=== PATIENT | male | born 1940 | race Caucasian/White ===

== ENCOUNTER 2021-04-21 06:51 | Day surgery (SDC) | payer OTHER ==
[~2021-04-21] VITALS: Ht 188 cm; Wt 107.5 kg
--- NOTE | ~2021-04-21 | O ---
[facility] [place] [address] OPERATIVE REPORT Name: CAROL ANN TODD [facility] Room #: 150-6 [facility] M..#: [id number] Admission: 04/21/21 Attend Phys: Jim Loomis MD Discharge: Date of : 36 Report #: [id number] THIS REPORT FOR: cc: Tj Michel,Jim Pate MD ~ DOC #: [id number] cc: Kevin Peoples MD, DO Jim Beach MD DATE OF SERVICE: 04/21/2021 PREOPERATIVE DIAGNOSES: 1. 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 2. Left lower lid ectropion with keratitis. POSTOPERATIVE DIAGNOSES: 1. 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 2. Left lower lid ectropion with keratitis. PROCEDURE: 1. Excision of basal cell carcinoma of left lower lid with myocutaneous flap repair of defect. 2. Correction of left lower lid ectropion by myocutaneous flap. SURGEON: Jim Loomis MD LAND APPRAISER: None. ANESTHESIA: MAC. COMPLICATIONS: None. INDICATIONS FOR SURGERY: This pleasant 81-year-old gentleman has a basal cell carcinoma in his left lower lid and cheek that has been biopsy proven with significant residual tumor present. He presents today primarily for excision of this tumor with frozen sections and subsequent reconstruction of that defect. 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 A left lower lid ectropion repair by myocutaneous advancement flap is also planned. Informed consent was obtained to include but not limited to the potential risk for loss of vision, bleeding, infection, failure to improve the problem, and the potential need for further surgery or treatment. DESCRIPTION OF PROCEDURE: The patient was taken to the operating room where 2% Xylocaine with epinephrine mixed with equal parts of 0.75% Marcaine with [place] [address] [address] OPERATIVE REPORT Name: CAROL ANN TODD [facility] Room #: 150-6 [facility]..#: [id number] Admission: 04/21/21 Attend Phys: Jim Loomis MD Discharge: Date of : 36 Report #: [id number] was administered transcutaneously to the left lower lid, the left cheek, the left medial canthus, the left lateral canthus and the left infratemporal fossa. The patient was subsequently prepped and draped in the usual sterile fashion. A fine tip skin marking pen was utilized to outline the lesion including approximately 2-3 mm of normal appearing tissue around its margins. The incisions were then made perpendicularly down to the premalar space where the excision was truncated. The lesion was then removed en-bloc and placed on a drawing for the waiting pathologist. She snap froze that tissue and found that our margins were clear. The basal cell carcinoma having then extirpated, the defect in the left lower lid was then corrected with a myocutaneous flap that was developed laterally. The area laterally out into the infratemporal fossa was then undermined and advanced after hemostasis was re-achieved. The deep closure was accomplished with interrupted buried 5-0 Vicryl sutures. The skin was then closed with interrupted 6-0 plain gut sutures. Attention was then paid to correction of the left lower lid ectropion. A section of the lateral portion of the lid margin was removed and hemostasis was re-achieved. A myocutaneous flap was then developed medially to be rotated laterally to resuspend the left lower lid. Hemostasis was then re-achieved. That flap was then resuspended by reattaching the tarsal plate to the lateral orbital rim with interrupted 5-0 Vicryl sutures. The eyelid margin was reapproximated with interrupted 7-0 Vicryl sutures. The subcutaneous structures and the skin was then closed with interrupted 6-0 plain gut sutures. The wounds were then cleaned and dressed with erythromycin ophthalmic ointment. The patient was subsequently transported to the recovery area having tolerated the procedures well with no anesthetic or operative complications being noted. MD SAM Thompson/GÓMEZ By: [id number] Jim Loomis MD /carin
[~2021-04-21 06:51] MED LIST: AIRBORNE ELDER PO; AMLODIPINE BESY10 MG PO; BENICAR HCT 401 EACH PO; EX-LAX15 MG PO; FLUTICASONE PRO16 GM NASAL; GLUCOPHAGE500 MG PO; HYDROCHLOROTH12.5 M1 PO; OLMESARTAN MEDO40 MG PO; TUMS200 MG PO; XANAX 0.5 MG0.5 MG PO
[2021-04-21 08:00] VITALS: BP 119/59
--- NOTE | 2021-04-22 14:07 | PATH ---
[address] [address] PATHOLOGY RPT PROCEDURE Name: CAROL ANN TODD GENE Room #: DEP [facility]..#: [id number] Admission: 04/21/21 Date of : 36 Discharge: 04/21/21 Report #: [id number] Path Case #: [id number] [facility] Accession Number: [id number] . 01 Material submitted: . lid - LEFT LOWER LID BASAL CELL CARCINOMA FS. Modifiers: left, lower . 01 Clinical history: . EXCISION BASAL CELL CARCINOMA/FLAP RECON BCCA . 02 Frozen section diagnosis: . FROZEN SECTION DIAGNOSIS (Dr. Elizabeth Bustos) . FSE1, Skin, left lower lid excision: - Margins free of invasive carcinoma on FS slides. . These findings are discussed with Dr. Jim Loomis in OR6 and a written report is placed in the patient's chart. . Frozen section performed at [facility], [address], [place] [address]. . . FROZEN SECTION GROSS DESCRIPTION Specimen E is received fresh from the OR labeled with the patient's name, and "left lower lid basal cell carcinoma", consists of an oriented ellipse of skin measuring 1.6 x 1 x 0.5 cm. The specimen is oriented as lateral, inferior and medial. The lateral margin is inked black, the inferior half of the medial margin is inked blue, and the superior half of the medial margin is inked green. At this point, the specimen is sectioned into five pieces and submitted for frozen section as FSE1, this is subsequently submitted for permanent sections as E1. (IUV:sony; 04/21/2021) [facility] . 02 Diagnosis: Skin, left lower lid, excision: - NODULAR BASAL CELL CARCINOMA. - Margins free of malignancy. (IUV:sony; 04/22/2021) QMS 04/22/2021 1122 Local . 02 Electronically signed: . Elizabeth Bustos MD, Pathologist NPI- [id number] [address] [address] PATHOLOGY RPT PROCEDURE Name: CAROL ANN TODD GENE Room #: DEP [facility] Amaury#: [id number] Admission: 04/21/21 Date of : 36 Discharge: 04/21/21 Report #: [id number] Path Case #: [id number] . 01 Gross description: . PLEASE SEE FROZEN SECTION GROSS DESCRIPTION. /QMS 04/21/2021 1231 Local . 02 Microscopic: . . . . 02 Pathologist provided ICD-10: C44.1192 . 02 CPT . 577390, [id number] Specimen Comment: A courtesy copy of this report has been sent to [phone], [phone] Specimen Comment: [phone] Specimen Comment: Report sent to / DR FLYNN Performed at: [address], [place] [id number] MD Asael Echevarria MD Phone: [phone] Performed at: [address] [id number] MD Elizabeth Bustos MD Phone: [phone]
== END 2021-04-21 10:30 | disposition home or self-care (01) ==
LOC: OR 06:51 → TBA 06:52 → OR 09:27
PROVIDERS: ATTEND Ophthalmology
DX: C44.1192 Basal cell carcinoma of skin of left lower eyelid, including canthus (principal); H02.105 Unspecified ectropion of left lower eyelid; H16.9 Unspecified keratitis; I10 Essential (primary) hypertension; F41.9 Anxiety disorder, unspecified; Z98.890 Other specified postprocedural states; Z79.899 Other long term (current) drug therapy; Z85.46 Personal history of malignant neoplasm of prostate; Z85.51 Personal history of malignant neoplasm of bladder; Z98.41 Cataract extraction status, right eye; Z98.42 Cataract extraction status, left eye
CPT/HCPCS: 50010; 50101; 50386; 50398; 51636; 56528; 56531; 62110; 62850; 70005